=== PATIENT | female | born 1960 | race Asian ===

== ENCOUNTER 2016-10-27 06:04 | Day surgery (SDC) | payer OTHER ==
[~2016-10-27] VITALS: Ht 149.9 cm; Wt 48.5 kg
[~2016-10-27 06:04] MED LIST: ALBU8.5H IH; AZIT250T6 PO; BUDE10.2 IH; ETHA400 PO; FLUT16H NASAL; MONT10TA24 PO; PRED5 PO; PROME5L PO
[2016-10-27] MEDS ORDERED: SODIUM CHLORIDE 0.9% 1,000 ML IV ONE ×2 (06:13→06:15)
[2016-10-27] MEDS ORDERED: MIDAZOLAM HCL 5 MG/ML VIAL ONE (07:50)
[2016-10-27] MEDS ORDERED: FentaNYL CITRATE-PF 100 MCG/2 ML VIAL ONE (07:50)
[2016-10-27] MEDS ORDERED: MIDAZOLAM HCL 2 MG/2 ML VIAL ONE (07:51)
[2016-10-27] MEDS ORDERED: MethylPREDNISolone SOD SUCC 125 MG/2 ML VIAL IVP ONE (08:30)
[2016-10-27] MEDS ORDERED: MethylPREDNISolone SOD SUCC 125 MG/2 ML VIAL ONE (08:39)
[2016-10-27] MEDS ORDERED: LIDOCAINE HCL 2% 30 ML JELLY TP ONE (16:34)
[2016-10-27] MEDS ORDERED: LIDOCAINE HCL 4% 50 ML SOLUTION TP ONE (16:34)
[2016-10-27] MEDS ORDERED: BENZOCAINE 20% 50 MCG/SPRAY 57 GM TP ONE (16:34)
[2016-10-27] MEDS ORDERED: ALBUTEROL SULFATE 2.5 MG/0.5 ML NEB SOLUTION NEB ONE (16:34)
[2016-10-27] MEDS ORDERED: EPINEPHrine 1:1,000 [1 MG/ML] AMP IVP ONE (16:34)
[2016-10-27] MEDS ORDERED: OXYGEN THERAPY IH SCH (20:00)
== END 2016-10-27 09:55 | disposition home or self-care (01) ==
LOC: SURGERY 06:04
PROVIDERS: ATTEND Internal Medicine Critical Care Medicine
DX: J38.4 Edema of larynx (principal); B37.0 Candidal stomatitis; J45.909 Unspecified asthma, uncomplicated; Z98.42 Cataract extraction status, left eye; Z98.41 Cataract extraction status, right eye
CPT/HCPCS: 31623; 31624; 71010; 87015 ×2; 87070; 87101; 87147; 87205; 87220; J0171; J2250; J2930; J3010; J7030; 88108; 88305; 88312

== ENCOUNTER 2017-09-28 06:28 | Day surgery (SDC) | payer OTHER ==
[~2017-09-28] VITALS: Ht 149.9 cm; Wt 40.0 kg
[~2017-09-28 06:28] MED LIST changes: -ALBU8.5H IH; +ALBU8.5H8 IH; -AZIT250T6 PO; +AZIT250T9 PO
[2017-09-28] MEDS ORDERED: ALBUTEROL SULFATE 2.5 MG/0.5 ML NEB SOLUTION NEB ONE (06:29)
[2017-09-28] MEDS ORDERED: BENZOCAINE 20% 50 MCG/SPRAY 57 GM TP ONE (06:29)
[2017-09-28] MEDS ORDERED: LIDOCAINE HCL 4% 50 ML SOLUTION TP ONE (06:29)
[2017-09-28] MEDS ORDERED: LIDOCAINE HCL 2% 5 ML JELLY TP ONE (06:29)
[2017-09-28] MEDS ORDERED: SODIUM CHLORIDE 0.9% 1,000 ML IV ONE ×2 (06:30→06:43)
[2017-09-28] MEDS ORDERED: FentaNYL CITRATE-PF 100 MCG/2 ML VIAL ONE (07:54)
[2017-09-28] MEDS ORDERED: MIDAZOLAM HCL 2 MG/2 ML VIAL ONE (07:54)
[2017-09-28] MEDS ORDERED: MethylPREDNISolone SOD SUCC 125 MG/2 ML VIAL IVP ONE (09:15)
[2017-09-28] MEDS ORDERED: MethylPREDNISolone SOD SUCC 125 MG/2 ML VIAL ONE (09:31)
[2017-09-28] MEDS ORDERED: OXYGEN THERAPY IH SCH (20:00)
== END 2017-09-28 10:55 | disposition home or self-care (01) ==
LOC: SURGERY 06:28
PROVIDERS: ATTEND Internal Medicine Critical Care Medicine
DX: J38.4 Edema of larynx (principal); B37.0 Candidal stomatitis; M19.90 Unspecified osteoarthritis, unspecified site; Z98.890 Other specified postprocedural states; Z98.41 Cataract extraction status, right eye; Z98.42 Cataract extraction status, left eye; Z79.899 Other long term (current) drug therapy
CPT/HCPCS: 31623; 31624; 71045; 87015; 87070; 87077; 87147; 87186; 87205; 87220; 88108; 88312; J2250; J2930; J3010; J7030

== ENCOUNTER 2018-08-14 06:05 | Day surgery (SDC) | payer OTHER ==
[~2018-08-14] VITALS: Ht 149.9 cm; Wt 38.2 kg
[~2018-08-14 06:05] MED LIST changes: +PROM6.2522 PO; -PROME5L PO; +SODIUM CHLORIDE 0.9% 1,000 ML IV ONE
[2018-08-14] MEDS ORDERED: SODIUM CHLORIDE 0.9% 1,000 ML IV ONE (07:30)
[2018-08-14] MEDS ORDERED: MIDAZOLAM HCL 2 MG/2 ML VIAL ONE (07:52)
[2018-08-14] MEDS ORDERED: FentaNYL CITRATE-PF 100 MCG/2 ML VIAL ONE (07:52)
[2018-08-14] MEDS ORDERED: MethylPREDNISolone SOD SUCC 125 MG/2 ML VIAL IVP ONE (08:45)
[2018-08-14] MEDS ORDERED: MethylPREDNISolone SOD SUCC 125 MG/2 ML VIAL ONE (08:54)
[2018-08-14] MEDS ORDERED: LIDOCAINE 2% 30 ML JELLY TP ONE (12:00)
[2018-08-14] MEDS ORDERED: BENZOCAINE 20% 50 MCG/SPRAY 57 GM TP ONE (12:00)
[2018-08-14] MEDS ORDERED: ALBUTEROL SULFATE 2.5 MG/0.5 ML NEB SOLUTION NEB ONE (12:00)
[2018-08-14] MEDS ORDERED: LIDOCAINE 4% 50 ML SOLUTION TP ONE (12:00)
[2018-08-14] MEDS ORDERED: OXYGEN THERAPY IH SCH (20:00)
== END 2018-08-14 10:30 | disposition home or self-care (01) ==
LOC: SURGERY 06:05
PROVIDERS: ATTEND Internal Medicine Critical Care Medicine
DX: J38.4 Edema of larynx (principal); B37.0 Candidal stomatitis; J84.111 Idiopathic interstitial pneumonia, not otherwise specified; J98.09 Other diseases of bronchus, not elsewhere classified; J98.8 Other specified respiratory disorders; J45.998 Other asthma; M19.90 Unspecified osteoarthritis, unspecified site; Z86.59 Personal history of other mental and behavioral disorders; Z98.41 Cataract extraction status, right eye; Z98.42 Cataract extraction status, left eye; Z98.890 Other specified postprocedural states; Z79.899 Other long term (current) drug therapy
CPT/HCPCS: 31623; 31624; 71045; 87015; 87070; 87205; 87206; 87220; J2250; J2930; J3010; J7030

== ENCOUNTER 2020-09-15 06:37 | Day surgery (SDC) | payer OTHER ==
[2020-09-13 13:42] LABS: COVID AG,FIA SOURCE NASOPHARYNGEAL
[~2020-09-15] VITALS: Ht 149.9 cm; Wt 36.5 kg
[~2020-09-15 06:37] MED LIST changes: -AZIT250T9 PO; -MONT10TA24 PO; +MONT10TA97 PO; -PRED5 PO; -PROM6.2522 PO; +SODIUM CHLORIDE 0.9% 1,000 ML ONE
[2020-09-15] MEDS ORDERED: LIDOCAINE 4% 50 ML SOLUTION TP ONE (06:38)
[2020-09-15] MEDS ORDERED: ALBUTEROL SULFATE 2.5 MG/0.5 ML NEB SOLUTION NEB ONE (06:38)
[2020-09-15] MEDS ORDERED: LIDOCAINE 2% 30 ML JELLY TP ONE (06:38)
[2020-09-15] MEDS ORDERED: BENZOCAINE 20% 50 MCG/SPRAY 57 GM TP ONE (06:38)
[2020-09-15] MEDS ORDERED: MIDAZOLAM HCL 2 MG/2 ML VIAL ONE (08:11)
[2020-09-15] MEDS ORDERED: FentaNYL CITRATE-PF 100 MCG/2 ML VIAL ONE (08:11)
[2020-09-15] MEDS ORDERED: MethylPREDNISolone SOD SUCC 125 MG/2 ML VIAL IVP ONE (09:15)
[2020-09-15] MEDS ORDERED: MethylPREDNISolone SOD SUCC 125 MG/2 ML VIAL ONE (09:47)
[2020-09-15] MEDS ORDERED: OXYGEN THERAPY IH SCH (20:00)
== END 2020-09-15 10:55 | disposition home or self-care (01) ==
LOC: SURGERY 06:37
PROVIDERS: ATTEND Internal Medicine Critical Care Medicine
DX: R05 Cough (principal); R04.2 Hemoptysis; J34.89 Other specified disorders of nose and nasal sinuses; J98.8 Other specified respiratory disorders; J38.4 Edema of larynx; B37.0 Candidal stomatitis; J45.909 Unspecified asthma, uncomplicated; Z79.899 Other long term (current) drug therapy; Z20.828 Contact with and (suspected) exposure to other viral communicable diseases
CPT/HCPCS: 31623; 31624; 71045; 87015; 87070; 87101; 87206; 87220; 87426; 88108; 88312; C9803; J2250; J2930; J3010; J7030; J7613; Z7610

== ENCOUNTER 2020-12-28 13:07 | Emergency (ER) | payer OTHER ==
[~2020-12-28] VITALS: Ht 149.9 cm; Wt 36.4 kg
[~2020-12-28 13:07] MED LIST changes: +MONT10TA32 PO; -MONT10TA97 PO; -SODIUM CHLORIDE 0.9% 1,000 ML IV ONE; -SODIUM CHLORIDE 0.9% 1,000 ML ONE
[2020-12-28] MEDS ORDERED: FLUC100T PO (13:42)
[2020-12-28] MEDS ORDERED: PRED10 PO (13:42)
[2020-12-28] MEDS ORDERED: FAMO20 PO (13:42)
[2020-12-28] MEDS ORDERED: GuaiFENesin/CODEINE [SUGAR FREE] 200-20MG/10 ML SYRUP UDCUP PO ONE (14:30)
[2020-12-28 14:40] LABS: ANION GAP 9 mmol/L (8-16); CALCIUM, TOTAL 9.3 mg/dL (8.8-10.5); CARBON DIOXIDE 27 mmol/L (22-29); CHLORIDE 103 mmol/L (98-107); CREATININE 0.92 mg/dL (0.60-1.30); GLOMERULAR FILTR. RATE CALC > 60 mL/min (>60); GLUCOSE,RANDOM 146 mg/dL (70-110); POTASSIUM 4.2 mmol/L (3.5-5.1); SODIUM SERUM 139 mmol/L (136-145); UREA NITROGEN, BLOOD 11 mg/dL (7-18)
[2020-12-28 14:47] LABS: ALANINE AMINOTRANSFERASE 24 U/L (12-78); ALBUMIN 3.8 g/dL (3.4-5.0); ALKALINE PHOSPHATASE 79 U/L (46-116); ASPARTATE AMINOTRANSFERASE 18 U/L (15-37); BILIRUBIN,TOTAL 0.2 mg/dL (0.1-1.0); TOTAL PROTEIN, SERUM 8.2 g/dL (6.4-8.2)
[2020-12-28 15:02] LABS: BASOPHILS % (AUTO) 0.2 % (0.0-2.0); EOSINOPHILS % (AUTO) 0.1 % (1.0-6.0); HEMATOCRIT 28.3 % (36-46); LYMPHOCYTES # (AUTO) 0.7 K/uL (1.0-4.8); LYMPHOCYTES % (AUTO) 5.9 % (22.0-44.0); MEAN CORPUSCULAR HEMOGLOBIN 28.3 pg (26.0-34.0); MEAN CORPUSCULAR HGB CONC 31.7 G/dL (31.0-37.0); MEAN CORPUSCULAR VOLUME 89 fL (80-100); MONOCYTES # (AUTO) 0.2 K/uL (0.1-1.0); MONOCYTES % (AUTO) 1.9 % (2.0-9.0); NEUTROPHILS # (AUTO) 10.7 K/uL (1.8-7.7); PLATELET COUNT (AUTO) 335 K/uL (150-450); RED BLOOD CELL COUNT(AUTO) 3.17 MIL/uL (4.00-5.20); RED CELL DISTRIBUTION WIDTH 19.5 % (11.5-14.5)
[2020-12-28 15:10] LABS: NEUTROPHILS % (AUTO) 91.9 % (40.0-70.0)
[2020-12-28 16:00] VITALS: BP 138/77
== END 2020-12-28 16:27 | disposition home or self-care (01) ==
LOC: EMS 13:15
DX: J47.9 Bronchiectasis, uncomplicated (principal)
CPT/HCPCS: 93005; 99285; 36415-L1; 36415-TC; 71045-TC

== ENCOUNTER 2022-01-20 06:26 | Day surgery (SDC) | payer OTHER ==
[~2022-01-20] VITALS: Ht 160 cm; Wt 40.9 kg
[~2022-01-20 06:26] MED LIST changes: +FAMO20 PO; +MONT-40 PO; -MONT10TA32 PO; +PRED-729 PO; +VORI50TA PO
[2022-01-20] MEDS ORDERED: LIDOCAINE 2% 30 ML JELLY TP ONE (06:27)
[2022-01-20] MEDS ORDERED: ALBUTEROL SULFATE 2.5 MG/0.5 ML NEB SOLUTION NEB ONE (06:27)
[2022-01-20] MEDS ORDERED: BENZOCAINE 20% 50 MCG/SPRAY 57 GM TP ONE (06:27)
[2022-01-20] MEDS ORDERED: LIDOCAINE 4% 50 ML SOLUTION TP ONE (06:27)
[2022-01-20] MEDS ORDERED: SODIUM CHLORIDE 0.9% 1,000 ML IV ONE (06:30)
[2022-01-20 07:09] LABS: COVID AG,FIA SOURCE NASOPHARYNGEAL
[2022-01-20] MEDS ORDERED: SODIUM CHLORIDE 0.9% 1,000 ML ONE (07:11)
[2022-01-20] MEDS ORDERED: MIDAZOLAM HCL 5 MG/ML VIAL ONE (07:53)
[2022-01-20] MEDS ORDERED: FentaNYL CITRATE PF 100 MCG/2 ML VIAL ONE (07:53)
[2022-01-20] MEDS ORDERED: MethylPREDNISolone SOD SUCC 125 MG/2 ML VIAL IVP ONE (09:30)
[2022-01-20] MEDS ORDERED: PROMETH/PHENYLEPHRINE/CODEINE 5 ML ORAL.SYG PO ONE (09:45)
[2022-01-20] MEDS ORDERED: PROMETHAZINE HCL/CODEINE 6.25-10MG/5ML SYRUP UDCUP PO ONE (10:15)
== END 2022-01-20 11:30 | disposition home or self-care (01) ==
LOC: SURGERY 06:26
PROVIDERS: ATTEND Internal Medicine Critical Care Medicine
DX: J38.4 Edema of larynx (principal); B37.0 Candidal stomatitis; J05.10 Acute epiglottitis without obstruction; J45.909 Unspecified asthma, uncomplicated; Z79.899 Other long term (current) drug therapy; Z98.890 Other specified postprocedural states
CPT/HCPCS: 31623; 31624; 71045; 71250; 87015; 87070; 87101; 87206; 87220; 87426; 88112; 88184; 88185; 88305; 88312; C9803; J2250; J2930; J3010; J7030; J2370; J7613; Z7610

== ENCOUNTER 2022-11-13 06:52 | Day surgery (SDC) | payer OTHER ==
[~2022-11-13 06:52] MED LIST changes: -ALBU8.5H8 IH; +ALBU8HFA IH; -BUDE10.2 IH; +BUDE10.7 IH; -FLUT16H NASAL; +FLUT16SP NASAL; +ITRA100C3 PO; +MEGE400O5 PO; +POLY17PO52 PO; -VORI50TA PO
[2022-11-13] MEDS ORDERED: SODIUM CHLORIDE 0.9% 1,000 ML IV ONE (07:00)
[2022-11-13 07:19] LABS: COVID AG,FIA SOURCE NASAL SWAB
[2022-11-16] MEDS ORDERED: PRED-554 PO (09:57)
[2022-11-16] MEDS ORDERED: LEVO-72 PO (09:58)
== END 2022-11-13 07:30 | disposition home or self-care (01) ==
LOC: SURGERY 06:52
PROVIDERS: ATTEND Internal Medicine Critical Care Medicine
DX: R05.3 Chronic cough (principal); R91.1 Solitary pulmonary nodule; J98.09 Other diseases of bronchus, not elsewhere classified; Z20.822 Contact with and (suspected) exposure to COVID-19; J98.8 Other specified respiratory disorders
CPT/HCPCS: 87426; C9803

== ENCOUNTER 2022-12-11 07:12 | Day surgery (SDC) | payer OTHER ==
[~2022-12-11] VITALS: Ht 149.9 cm; Wt 40.9 kg
[~2022-12-11 07:12] MED LIST changes: -ETHA400 PO; -ITRA100C3 PO; -MEGE400O5 PO; +MEGE40TA5 PO; -PRED-729 PO; +SODIUM CHLORIDE 0.9% 1,000 ML IV ONE
[2022-12-11] MEDS ORDERED: LIDOCAINE 4% 50 ML SOLUTION TP ONE (07:13)
[2022-12-11] MEDS ORDERED: BENZOCAINE 20% 50 MCG/SPRAY 57 GM TP ONE (07:13)
[2022-12-11] MEDS ORDERED: LEVALBUTEROL HCL 1.25 MG/0.5 ML NEB SOLUTION NEB ONE (07:13)
[2022-12-11] MEDS ORDERED: LIDOCAINE 2% 11 ML JELLY TP ONE (07:13)
[2022-12-11] MEDS ORDERED: ALBUTEROL SULFATE 2.5 MG/0.5 ML NEB SOLUTION NEB ONE (07:13)
[2022-12-11] MEDS ORDERED: PRED-729 PO (07:53)
[2022-12-11 08:03] LABS: COVID AG,FIA SOURCE NASOPHARYNGEAL
[2022-12-11] MEDS ORDERED: SODIUM CHLORIDE 0.9% 1,000 ML ONE (08:04)
[2022-12-11] MEDS ORDERED: FentaNYL CITRATE PF 100 MCG/2 ML VIAL ONE (08:36)
[2022-12-11] MEDS ORDERED: MIDAZOLAM HCL 2 MG/2 ML VIAL ONE (08:36)
[2022-12-11] MEDS ORDERED: MethylPREDNISolone SOD SUCC 125 MG/2 ML VIAL IVP ONE (10:15)
[2022-12-11] MEDS ORDERED: MethylPREDNISolone SOD SUCC 125 MG/2 ML VIAL ONE (10:46)
== END 2022-12-11 12:25 | disposition home or self-care (01) ==
LOC: SURGERY 07:12
PROVIDERS: ATTEND Internal Medicine Critical Care Medicine
DX: R05.3 Chronic cough (principal); R91.1 Solitary pulmonary nodule; J98.8 Other specified respiratory disorders; J98.09 Other diseases of bronchus, not elsewhere classified
CPT/HCPCS: 31623; 88112; 87206; 87101; 87220; 87070; 87186; 31624; 94640; 71045; 87015; 87426; J3010; J2250; J2930; Q9967; J7030; C9803; J7613; Z7610

== ENCOUNTER 2023-01-12 12:22 | Emergency (ER) | payer OTHER ==
[~2023-01-12] VITALS: Ht 149.9 cm; Wt 54.5 kg
[~2023-01-12 12:22] MED LIST changes: +ALBU18HF12 IH; -ALBU8HFA IH; +PRED-729 PO; -SODIUM CHLORIDE 0.9% 1,000 ML IV ONE
[2023-01-12 15:07] LABS: APPEARANCE,URINE CLEAR (CLEAR); BILIRUBIN,URINE NEGATIVE (NEGATIVE); GLUCOSE, URINE (UA) NEGATIVE (NEGATIVE); KETONES,URINE NEGATIVE (NEGATIVE); LEUKOCYTE ESTERASE ,URINE NEGATIVE (NEGATIVE); NITRATE,URINE NEGATIVE (NEGATIVE); OCCULT BLOOD,URINE NEGATIVE (NEGATIVE); PH,URINE 6.5 (5.0-8.0); PROTEIN,URINE NEGATIVE (NEGATIVE); SPECIFIC GRAVITIY, URINE 1.005 (1.003-1.030); UROBILINOGEN,URINE <=1.0 mg/dL (<=1.0)
[2023-01-12 15:23] LABS: BASOPHILS % (AUTO) 0.2 % (0.0-2.0); EOSINOPHILS % (AUTO) 1.2 % (1.0-6.0); HEMATOCRIT 36.4 % (36-46); HEMOGLOBIN 11.4 g/dL (12.0-16.0); LYMPHOCYTES # (AUTO) 3.1 K/uL (1.0-4.8); LYMPHOCYTES % (AUTO) 21.3 % (22.0-44.0); MEAN CORPUSCULAR HEMOGLOBIN 24.3 pg (26.0-34.0); MEAN CORPUSCULAR HGB CONC 31.3 G/dL (31.0-37.0); MEAN CORPUSCULAR VOLUME 78 fL (80-100); MONOCYTES # (AUTO) 1.2 K/uL (0.1-1.0); MONOCYTES % (AUTO) 8.1 % (2.0-9.0); NEUTROPHILS # (AUTO) 10.1 K/uL (1.8-7.7); NEUTROPHILS % (AUTO) 69.2 % (40.0-70.0); PLATELET COUNT (AUTO) 347 K/uL (150-450); RED BLOOD CELL COUNT(AUTO) 4.68 MIL/uL (4.00-5.20); RED CELL DISTRIBUTION WIDTH 18.4 % (11.5-14.5)
[2023-01-12 15:35] LABS: ANION GAP 9 mmol/L (8-16); CALCIUM, TOTAL 9.5 mg/dL (8.8-10.5); CARBON DIOXIDE 26 mmol/L (22-29); CHLORIDE 99 mmol/L (98-107); CREATININE 0.77 mg/dL (0.60-1.30); GLOMERULAR FILTR. RATE CALC > 60 mL/min (>60); GLUCOSE,RANDOM 89 mg/dL (70-110); POTASSIUM 3.9 mmol/L (3.5-5.1); SODIUM SERUM 134 mmol/L (136-145); UREA NITROGEN, BLOOD 16 mg/dL (7-18)
[2023-01-12 15:41] LABS: ALANINE AMINOTRANSFERASE 37 U/L (12-78); ALBUMIN 3.9 g/dL (3.4-5.0); ALKALINE PHOSPHATASE 84 U/L (46-116); ASPARTATE AMINOTRANSFERASE 25 U/L (15-37); BILIRUBIN,TOTAL 0.4 mg/dL (0.1-1.0)
[2023-01-12 16:00] LABS: B-TYPE NATRIURETIC PEPTIDE 31 pg/mL (0-100)
[2023-01-12] MEDS ORDERED: ACETAMINOPHEN 325 MG TABLET PO ONE (16:30)
[2023-01-12] MEDS ORDERED: AMOXICILLIN TRIHYDRATE 250 MG CAPSULE PO ONE ×2 (16:45)
[2023-01-12] MEDS ORDERED: AMOX500C2 PO (21:34)
[2023-01-12 21:58] VITALS: BP 136/80
== END 2023-01-12 22:01 | disposition home or self-care (01) ==
LOC: EMS 12:22
DX: J32.9 Chronic sinusitis, unspecified (principal); R42 Dizziness and giddiness; J45.909 Unspecified asthma, uncomplicated
CPT/HCPCS: 70450; 71045; 80053; 81003; 83880; 84484; 85025; 93005; 99285; 36415-L1; 36415-TC

== ENCOUNTER 2023-02-21 07:20 | Inpatient (IN) | payer OTHER ==
[~2023-02-21] VITALS: Ht 149.9 cm; Wt 40.9 kg
[~2023-02-21 07:20] MED LIST changes: +AMOX500C2 PO; -BUDE10.7 IH; -MEGE40TA5 PO
[2023-02-21] MEDS ORDERED: BUDE10.7 IH (07:36)
[2023-02-21] MEDS ORDERED: MethylPREDNISolone SOD SUCC 125 MG/2 ML VIAL IVP ONE (08:15)
[2023-02-21] MEDS ORDERED: MORPHINE SULFATE 4 MG/ML SYRINGE IVP ONE (08:15)
[2023-02-21] MEDS ORDERED: ALBUTEROL SULFATE 2.5 MG/0.5 ML NEB SOLUTION NEB ONE (08:15)
[2023-02-21] MEDS ORDERED: ONDANSETRON HCL 4 MG/2 ML VIAL IVP ONE (08:15)
[2023-02-21] MEDS ORDERED: CefTRIAXone 1 GM/DEXTROSE 50 ML IV ONE (08:15)
[2023-02-21] MEDS ORDERED: ACETAMINOPHEN 325 MG TABLET PO ONE (08:15)
[2023-02-21] MEDS ORDERED: ASPIRIN 325 MG TABLET PO ONE (08:15)
[2023-02-21] MEDS ORDERED: IPRATROPIUM BROMIDE 0.5 MG/2.5 ML NEB SOLUTION NEB ONE (08:15)
[2023-02-21] MEDS ORDERED: AZITHROMYCIN 500 MG/NS 250 ML IV ONE (08:15)
[2023-02-21 08:51] LABS: BASOPHILS % (AUTO) 0.2 % (0.0-2.0); EOSINOPHILS % (AUTO) 1.7 % (1.0-6.0); HEMATOCRIT 33.3 % (36-46); HEMOGLOBIN 10.7 g/dL (12.0-16.0); LYMPHOCYTES # (AUTO) 1.7 K/uL (1.0-4.8); LYMPHOCYTES % (AUTO) 12.1 % (22.0-44.0); MEAN CORPUSCULAR HEMOGLOBIN 25.1 pg (26.0-34.0); MEAN CORPUSCULAR HGB CONC 32.2 G/dL (31.0-37.0); MEAN CORPUSCULAR VOLUME 78 fL (80-100); MONOCYTES # (AUTO) 1.3 K/uL (0.1-1.0); MONOCYTES % (AUTO) 9.2 % (2.0-9.0); NEUTROPHILS % (AUTO) 76.8 % (40.0-70.0); PLATELET COUNT (AUTO) 389 K/uL (150-450); RED BLOOD CELL COUNT(AUTO) 4.28 MIL/uL (4.00-5.20); RED CELL DISTRIBUTION WIDTH 17.3 % (11.5-14.5)
[2023-02-21 09:02] LABS: ANION GAP 12 mmol/L (8-16); CARBON DIOXIDE 24 mmol/L (22-29); CHLORIDE 97 mmol/L (98-107); CREATININE 0.79 mg/dL (0.60-1.30); GLOMERULAR FILTR. RATE CALC > 60 mL/min (>60); GLUCOSE,RANDOM 91 mg/dL (70-110); POTASSIUM 3.3 mmol/L (3.5-5.1); SODIUM SERUM 133 mmol/L (136-145)
[2023-02-21 09:06] LABS: B-TYPE NATRIURETIC PEPTIDE 20 pg/mL (0-100)
[2023-02-21 09:11] LABS: LACTIC ACID 1.3 mmol/L (0.4-2.0)
[2023-02-21 09:17] LABS: ALANINE AMINOTRANSFERASE 42 U/L (12-78); ALBUMIN 3.2 g/dL (3.4-5.0); ALKALINE PHOSPHATASE 94 U/L (46-116); ASPARTATE AMINOTRANSFERASE 19 U/L (15-37); BILIRUBIN,TOTAL 0.3 mg/dL (0.1-1.0); LIPASE 48 U/L (73-393); TOTAL PROTEIN, SERUM 7.4 g/dL (6.4-8.2)
[2023-02-21 09:18] LABS: COVID AG,FIA SOURCE NASOPHARYNGEAL
[2023-02-21 09:50] LABS: INFLUENZA TYPE A NEGATIVE FOR TYPE A (NEGATIVE); INFLUENZA TYPE B NEGATIVE FOR TYPE B (NEGATIVE)
[2023-02-21 11:28] LABS: APPEARANCE,URINE CLEAR (CLEAR); BILIRUBIN,URINE NEGATIVE (NEGATIVE); GLUCOSE, URINE (UA) NEGATIVE (NEGATIVE); KETONES,URINE NEGATIVE (NEGATIVE); LEUKOCYTE ESTERASE ,URINE NEGATIVE (NEGATIVE); NITRATE,URINE NEGATIVE (NEGATIVE); OCCULT BLOOD,URINE NEGATIVE (NEGATIVE); PH,URINE 6.5 (5.0-8.0); PROTEIN,URINE NEGATIVE (NEGATIVE); UROBILINOGEN,URINE <=1.0 mg/dL (<=1.0)
[2023-02-21 11:41] LABS: BACTERIA,URINE None Seen /HPF (None Seen); RBC,URINE None Seen /HPF (0-2); SQUAMOUS EPITHELIAL CELL,UR Rare /LPF (None Seen); WBC,URINE None Seen /HPF (0-5)
[2023-02-21] MEDS ORDERED: BISACODYL 10 MG RECTAL RECTAL SUPPOSITORY PR PRN (14:30)
[2023-02-21] MEDS ORDERED: ACETAMINOPHEN 325 MG TABLET PO PRN (14:30)
[2023-02-21] MEDS ORDERED: MORPHINE SULFATE 2 MG/ML SYRINGE IVP PRN (14:30)
[2023-02-21] MEDS ORDERED: ALBUTEROL SULFATE 2.5 MG/0.5 ML NEB SOLUTION NEB PRN (14:30)
[2023-02-21] MEDS ORDERED: ZOLPIDEM TARTRATE 5 MG TABLET PO PRN (14:30)
[2023-02-21] MEDS ORDERED: MAGNESIUM HYDROXIDE SUSPENSION 30 ML UDCUP PO PRN (14:30)
[2023-02-21] MEDS ORDERED: ONDANSETRON HCL 4 MG/2 ML VIAL IVP PRN (14:30)
[2023-02-21] MEDS ORDERED: IPRATROPIUM BROMIDE 0.5 MG/2.5 ML NEB SOLUTION NEB PRN (14:30)
[2023-02-21 16:34] VITALS: BP 152/87
[2023-02-21] MEDS: BENZONATATE 100 MG CAPSULE PO SCH ×2 (17:13→20:09)
[2023-02-21] MEDS: HEPARIN SODIUM,PORCINE 5,000 UNITS/ML VIAL SQ SCH (17:14)
[2023-02-21 17:26] VITALS: BP 149/88
[2023-02-21] MEDS: MethylPREDNISolone SOD SUCC 125 MG/2 ML VIAL IVP SCH (17:48)
[2023-02-21] MEDS ORDERED: POTASSIUM CHLORIDE 20 MEQ ER TABLET PO PRN (18:45)
[2023-02-21] MEDS ORDERED: POTASSIUM CHLORIDE 20 MEQ ER TABLET PO ONE (18:45)
[2023-02-21] MEDS ORDERED: POTASSIUM CHL 10 MEQ/WATER 50 ML IV PRN (18:45)
[2023-02-21] MEDS: HYDROCODONE/ACETAMINOPHEN 5-325 MG TABLET PO PRN (20:09)
[2023-02-21] MEDS: DOCUSATE SODIUM 100 MG CAPSULE PO SCH (20:09)
[2023-02-21] MEDS: GuaiFENesin SR 600 MG ER TABLET PO SCH (20:09)
[2023-02-21 20:15] VITALS: BP 156/84
[2023-02-21] MEDS: BUDESONIDE 0.5 MG/2 ML NEB SOLUTION NEB SCH (20:40)
[2023-02-21] MEDS: IPRATROPIUM BROMIDE 0.5 MG/2.5 ML NEB SOLUTION NEB SCH (20:40)
[2023-02-21] MEDS: ALBUTEROL SULFATE 2.5 MG/0.5 ML NEB SOLUTION NEB SCH (20:40)
[2023-02-22] MEDS: MethylPREDNISolone SOD SUCC 125 MG/2 ML VIAL IVP SCH ×4 (00:14→23:16)
[2023-02-22] MEDS: HEPARIN SODIUM,PORCINE 5,000 UNITS/ML VIAL SQ SCH ×4 (00:14→23:28)
[2023-02-22] MEDS: ALBUTEROL SULFATE 2.5 MG/0.5 ML NEB SOLUTION NEB SCH ×4 (02:44→20:00)
[2023-02-22] MEDS: IPRATROPIUM BROMIDE 0.5 MG/2.5 ML NEB SOLUTION NEB SCH ×4 (02:44→20:00)
[2023-02-22 04:15] VITALS: BP 144/73
[2023-02-22 06:47] LABS: BASOPHILS % (AUTO) 0.1 % (0.0-2.0); EOSINOPHILS % (AUTO) 0 % (1.0-6.0); HEMATOCRIT 32.7 % (36-46); HEMOGLOBIN 10.6 g/dL (12.0-16.0); LYMPHOCYTES # (AUTO) 0.7 K/uL (1.0-4.8); LYMPHOCYTES % (AUTO) 4.9 % (22.0-44.0); MEAN CORPUSCULAR HGB CONC 32.4 G/dL (31.0-37.0); MEAN CORPUSCULAR VOLUME 77 fL (80-100); MONOCYTES # (AUTO) 0.1 K/uL (0.1-1.0); MONOCYTES % (AUTO) 0.6 % (2.0-9.0); NEUTROPHILS # (AUTO) 13.7 K/uL (1.8-7.7); NEUTROPHILS % (AUTO) 94.4 % (40.0-70.0); PLATELET COUNT (AUTO) 370 K/uL (150-450); RED BLOOD CELL COUNT(AUTO) 4.25 MIL/uL (4.00-5.20); RED CELL DISTRIBUTION WIDTH 17.1 % (11.5-14.5)
[2023-02-22 07:20] LABS: CREATININE 0.97 mg/dL (0.60-1.30); POTASSIUM 4.3 mmol/L (3.5-5.1)
[2023-02-22 08:00] VITALS: BP 150/94
[2023-02-22 08:02] VITALS: BP 158/90
[2023-02-22] MEDS: GuaiFENesin SR 600 MG ER TABLET PO SCH ×2 (08:20→20:38)
[2023-02-22] MEDS: DOCUSATE SODIUM 100 MG CAPSULE PO SCH ×2 (08:21→20:38)
[2023-02-22] MEDS: PANTOPRAZOLE SODIUM 40 MG DR TABLET PO SCH (08:21)
[2023-02-22] MEDS: BENZONATATE 100 MG CAPSULE PO SCH ×3 (08:26→20:38)
[2023-02-22] MEDS ORDERED: SODIUM CHLORIDE 0.9% 250 ML IV ONE (08:55)
[2023-02-22] MEDS: BUDESONIDE 0.5 MG/2 ML NEB SOLUTION NEB SCH ×2 (08:57→20:50)
[2023-02-22] MEDS: HYDROCODONE/ACETAMINOPHEN 5-325 MG TABLET PO PRN ×3 (10:14→23:39)
[2023-02-22] MEDS: CefTRIAXone 1 GM/DEXTROSE 50 ML IV SCH (11:11)
[2023-02-22] MEDS: MONTELUKAST SODIUM 10 MG TABLET PO SCH (11:40)
[2023-02-22] MEDS: AZITHROMYCIN 500 MG/NS 250 ML IV SCH (11:44)
[2023-02-22 16:08] VITALS: BP 170/94
[2023-02-22 20:35] VITALS: BP 160/98
[2023-02-22 23:13] VITALS: BP 151/91
[2023-02-23] MEDS: IPRATROPIUM BROMIDE 0.5 MG/2.5 ML NEB SOLUTION NEB SCH ×4 (02:49→20:11)
[2023-02-23] MEDS: ALBUTEROL SULFATE 2.5 MG/0.5 ML NEB SOLUTION NEB SCH ×4 (02:50→20:11)
[2023-02-23 05:04] VITALS: BP 142/86
[2023-02-23] MEDS: BUDESONIDE 0.5 MG/2 ML NEB SOLUTION NEB SCH ×2 (06:58→20:12)
[2023-02-23 07:05] LABS: EOSINOPHILS % (AUTO) 0 % (1.0-6.0); HEMATOCRIT 32.6 % (36-46); HEMOGLOBIN 10.5 g/dL (12.0-16.0); LYMPHOCYTES # (AUTO) 0.7 K/uL (1.0-4.8); MEAN CORPUSCULAR HEMOGLOBIN 24.7 pg (26.0-34.0); MEAN CORPUSCULAR HGB CONC 32.3 G/dL (31.0-37.0); MEAN CORPUSCULAR VOLUME 77 fL (80-100); MONOCYTES # (AUTO) 0.3 K/uL (0.1-1.0); MONOCYTES % (AUTO) 1.4 % (2.0-9.0); NEUTROPHILS # (AUTO) 21.4 K/uL (1.8-7.7); PLATELET COUNT (AUTO) 374 K/uL (150-450); RED BLOOD CELL COUNT(AUTO) 4.25 MIL/uL (4.00-5.20); RED CELL DISTRIBUTION WIDTH 16.8 % (11.5-14.5)
[2023-02-23 07:08] LABS: NEUTROPHILS % (AUTO) 95.6 % (40.0-70.0)
[2023-02-23 07:12] LABS: CALCIUM, TOTAL 9.1 mg/dL (8.8-10.5); CREATININE 1.15 mg/dL (0.60-1.30)
[2023-02-23 07:59] VITALS: BP 141/82
[2023-02-23] MEDS: BENZONATATE 100 MG CAPSULE PO SCH ×3 (08:06→20:07)
[2023-02-23] MEDS: PANTOPRAZOLE SODIUM 40 MG DR TABLET PO SCH (08:06)
[2023-02-23] MEDS: HEPARIN SODIUM,PORCINE 5,000 UNITS/ML VIAL SQ SCH ×3 (08:06→23:48)
[2023-02-23] MEDS: MONTELUKAST SODIUM 10 MG TABLET PO SCH (08:06)
[2023-02-23] MEDS: DOCUSATE SODIUM 100 MG CAPSULE PO SCH ×2 (08:06→20:06)
[2023-02-23] MEDS: GuaiFENesin SR 600 MG ER TABLET PO SCH ×2 (08:06→20:06)
[2023-02-23] MEDS: MethylPREDNISolone SOD SUCC 125 MG/2 ML VIAL IVP SCH (08:07)
[2023-02-23] MEDS: CefTRIAXone 1 GM/DEXTROSE 50 ML IV SCH (11:07)
[2023-02-23] MEDS: AZITHROMYCIN 500 MG/NS 250 ML IV SCH (11:55)
[2023-02-23] MEDS: HYDROCODONE/ACETAMINOPHEN 5-325 MG TABLET PO PRN ×2 (14:21→20:01)
[2023-02-23 15:01] VITALS: BP 147/93
[2023-02-23 15:03] LABS: ABG BASE EXCESS -0.8 mmol/L (-2.0-3.0); ABG CARBOXYHEMOGLOBIN 0.3 % (0.0-1.5); ABG HCO3 24.3 mmol/L (22.0-26.0); ABG METHEMOGLOBIN 0.3 % (0.0-1.5); ABG OXYGEN CONTENT 13.8 mL/dL (15.0-23.0); ABG OXYHEMOGLOBIN 95.4 % (94.0-100.0); ABG PCO2 30 mmHg (35-45); ABG PH 7.497 (7.35-7.450); ABG TOTAL HEMOGLOBIN 10.2 G/dL (12.0-18.0); PO2, ARTERIAL BG 78.1 mmHg (79.0-87.0); SOURCE, BLOOD GAS ARTERIAL; TEMPERATURE, FAHRENHEIT, BG 98.9 FAHREN (96.0-98.6)
[2023-02-23 15:04] LABS: SITE, BLOOD GAS LFT BRACHIAL
[2023-02-23 19:47] VITALS: BP 149/88
[2023-02-24] MEDS: IPRATROPIUM BROMIDE 0.5 MG/2.5 ML NEB SOLUTION NEB SCH ×3 (02:29→16:13)
[2023-02-24] MEDS: ALBUTEROL SULFATE 2.5 MG/0.5 ML NEB SOLUTION NEB SCH ×3 (02:29→16:13)
[2023-02-24 04:41] VITALS: BP 128/85
[2023-02-24] MEDS: HYDROCODONE/ACETAMINOPHEN 5-325 MG TABLET PO PRN ×2 (05:50→12:05)
[2023-02-24 07:33] LABS: BASOPHILS % (AUTO) 0.1 % (0.0-2.0); EOSINOPHILS % (AUTO) 0 % (1.0-6.0); HEMATOCRIT 28.5 % (36-46); HEMOGLOBIN 9.3 g/dL (12.0-16.0); LYMPHOCYTES # (AUTO) 1.5 K/uL (1.0-4.8); LYMPHOCYTES % (AUTO) 8.3 % (22.0-44.0); MEAN CORPUSCULAR HEMOGLOBIN 24.9 pg (26.0-34.0); MEAN CORPUSCULAR HGB CONC 32.6 G/dL (31.0-37.0); MEAN CORPUSCULAR VOLUME 76 fL (80-100); MONOCYTES # (AUTO) 1.2 K/uL (0.1-1.0); MONOCYTES % (AUTO) 6.9 % (2.0-9.0); NEUTROPHILS # (AUTO) 15.3 K/uL (1.8-7.7); NEUTROPHILS % (AUTO) 84.7 % (40.0-70.0); PLATELET COUNT (AUTO) 302 K/uL (150-450); RED BLOOD CELL COUNT(AUTO) 3.74 MIL/uL (4.00-5.20); RED CELL DISTRIBUTION WIDTH 16.5 % (11.5-14.5)
[2023-02-24 07:45] VITALS: BP 159/94
[2023-02-24 08:14] LABS: ANION GAP 6 mmol/L (8-16); CALCIUM, TOTAL 8.5 mg/dL (8.8-10.5); CARBON DIOXIDE 26 mmol/L (22-29); CHLORIDE 100 mmol/L (98-107); CREATININE 0.85 mg/dL (0.60-1.30); GLOMERULAR FILTR. RATE CALC > 60 mL/min (>60); GLUCOSE,RANDOM 104 mg/dL (70-110); POTASSIUM 3.7 mmol/L (3.5-5.1); SODIUM SERUM 132 mmol/L (136-145)
[2023-02-24] MEDS ORDERED: PRED-554 PO (08:21)
[2023-02-24] MEDS ORDERED: LEVO-72 PO (08:22)
[2023-02-24] MEDS: HEPARIN SODIUM,PORCINE 5,000 UNITS/ML VIAL SQ SCH ×2 (08:36→15:44)
[2023-02-24] MEDS: PANTOPRAZOLE SODIUM 40 MG DR TABLET PO SCH (08:36)
[2023-02-24] MEDS: MONTELUKAST SODIUM 10 MG TABLET PO SCH (08:36)
[2023-02-24] MEDS: GuaiFENesin SR 600 MG ER TABLET PO SCH (08:36)
[2023-02-24] MEDS: DOCUSATE SODIUM 100 MG CAPSULE PO SCH (08:36)
[2023-02-24] MEDS: BENZONATATE 100 MG CAPSULE PO SCH ×2 (08:36→15:44)
[2023-02-24] MEDS ORDERED: PredniSONE 20 MG TABLET PO SCH (09:00)
[2023-02-24] MEDS: BUDESONIDE 0.5 MG/2 ML NEB SOLUTION NEB SCH (09:33)
[2023-02-24] MEDS: CefTRIAXone 1 GM/DEXTROSE 50 ML IV SCH (11:28)
[2023-02-24] MEDS: AZITHROMYCIN 500 MG/NS 250 ML IV SCH (13:48)
[2023-02-24] MEDS ORDERED: PNEUMOCOCCAL VACCINE POLYVALENT 0.5 ML VIAL [PPSV23] IM. ONE (14:45)
[2023-02-24 15:48] VITALS: BP 153/91
== END 2023-02-24 16:05 | disposition home or self-care (01) | DRG 139 ==
LOC: EMS 07:21 → 6S 14:53
PROVIDERS: ADMIT Internal Medicine; ATTEND Internal Medicine
PROC: 3E0234Z Introduction of Serum, Toxoid and Vaccine into Muscle, Percutaneous Approach (ICD-10-PCS; principal; 2023-02-21)
DX: J18.9 Pneumonia, unspecified organism (principal); J96.01 Acute respiratory failure with hypoxia; R65.11 Systemic inflammatory response syndrome (SIRS) of non-infectious origin with acute organ dysfunction; E43 Unspecified severe protein-calorie malnutrition; J45.901 Unspecified asthma with (acute) exacerbation; E87.1 Hypo-osmolality and hyponatremia; Z20.822 Contact with and (suspected) exposure to COVID-19; K21.9 Gastro-esophageal reflux disease without esophagitis; E87.6 Hypokalemia; D64.9 Anemia, unspecified; Z79.899 Other long term (current) drug therapy; Z68.1 Body mass index [BMI] 19.9 or less, adult
CPT/HCPCS: 36600; 71045; 80048; 80053; 81001; 82805; 83605; 83690; 83880; 84132; 84484; 85025; 87040; 87804; 90732; 94640; 97116; 97162; 99285; G0378; J0456; J0696; J1644; J2270; J2405; J2930; J7050; 36415-L1; 36415-TC; J7613

== ENCOUNTER 2024-03-10 06:49 | Day surgery (SDC) | payer OTHER ==
[~2024-03-10 06:49] MED LIST changes: -AMOX500C2 PO; +BUDE10.7 IH; -FLUT16SP NASAL; +LEVO-72 PO; -MONT-40 PO; -POLY17PO52 PO; +PRED-554 PO; -PRED-729 PO
[2024-03-10] MEDS ORDERED: LIDOCAINE 2% 11 ML JELLY TP ONE (06:50)
[2024-03-10] MEDS ORDERED: ALBUTEROL SULFATE 2.5 MG/0.5 ML NEB SOLUTION NEB ONE (06:50)
[2024-03-10] MEDS ORDERED: BENZOCAINE 20% 50 MCG/SPRAY 57 GM TP ONE (06:50)
[2024-03-10] MEDS ORDERED: LIDOCAINE 4% 50 ML SOLUTION TP ONE (06:50)
[2024-03-10] MEDS ORDERED: SODIUM CHLORIDE 0.9% 0 ML ONE (07:03)
[2024-03-10] MEDS ORDERED: MIDAZOLAM HCL 2 MG/2 ML VIAL ONE (07:38)
[2024-03-10] MEDS ORDERED: FentaNYL CITRATE PF 100 MCG/2 ML VIAL ONE (07:39)
[2024-03-10] MEDS: SODIUM CHLORIDE 0.9% 1,000 ML IV ONE (08:30)
[2024-03-10 09:10] VITALS: PULSE 73; RESP 18; O2SAT 98
[2024-03-10] MEDS ORDERED: MethylPREDNISolone SOD SUCC 125 MG/2 ML VIAL ONE (09:32)
[2024-03-10] MEDS: MethylPREDNISolone SOD SUCC 125 MG/2 ML VIAL IVP ONE (09:43)
== END 2024-03-10 11:15 | disposition home or self-care (01) ==
LOC: SURGERY 06:49
PROVIDERS: ATTEND Internal Medicine Critical Care Medicine
DX: R05.3 Chronic cough (principal); J38.4 Edema of larynx; B37.0 Candidal stomatitis; J98.09 Other diseases of bronchus, not elsewhere classified; J84.10 Pulmonary fibrosis, unspecified; J98.8 Other specified respiratory disorders; Z85.21 Personal history of malignant neoplasm of larynx; Z11.9 Encounter for screening for infectious and parasitic diseases, unspecified; R06.00 Dyspnea, unspecified; I10 Essential (primary) hypertension; J45.909 Unspecified asthma, uncomplicated; Z98.890 Other specified postprocedural states; Z79.899 Other long term (current) drug therapy
CPT/HCPCS: 87206; 87101; 87220; 87070; 88108; 31623; 31624; 71045; 87015; J3010; J2250; J2919; Q9967; 87186; J7030; J7613; Z7610

== ENCOUNTER 2025-01-21 06:27 | Day surgery (SDC) | payer OTHER ==
[~2025-01-21] VITALS: Ht 149.9 cm; Wt 45.5 kg
[2025-01-21] MEDS ORDERED: ALBUTEROL SULFATE 2.5 MG/0.5 ML NEB SOLUTION NEB ONE (06:28)
[2025-01-21] MEDS ORDERED: BENZOCAINE 20% 50 MCG/SPRAY 57 GM TP ONE (06:28)
[2025-01-21] MEDS ORDERED: LIDOCAINE 2% 11 ML JELLY TP ONE (06:28)
[2025-01-21] MEDS ORDERED: LIDOCAINE 4% 50 ML SOLUTION TP ONE (06:28)
[2025-01-21] MEDS ORDERED: SODIUM CHLORIDE 0.9% 1,000 ML ONE (07:03)
[2025-01-21] MEDS: SODIUM CHLORIDE 0.9% 1,000 ML IV ONE (08:10)
[2025-01-21] MEDS ORDERED: FLUMAZENIL 0.1 MG/ML 5 ML VIAL IVP ONE (08:18)
[2025-01-21] MEDS ORDERED: NALOXONE HCL 0.4 MG/ML VIAL ONE (08:19)
[2025-01-21] MEDS ORDERED: DiphenhydrAMINE HCL 50 MG/ML VIAL ONE (08:19)
[2025-01-21] MEDS ORDERED: ATROPINE SULFATE 0.1 MG/ML 10 ML SYRINGE IVP ONE (08:19)
[2025-01-21] MEDS ORDERED: SODIUM TETRADECYL SULFATE 3% 60 MG/2 ML VIAL IVP ONE (08:19)
[2025-01-21] MEDS ORDERED: EPINEPHrine 1:10,000 [1 MG/10 ML] SYRINGE ONE (08:19)
[2025-01-21] MEDS ORDERED: FentaNYL CITRATE PF 100 MCG/2 ML VIAL ONE (08:20)
[2025-01-21] MEDS ORDERED: MIDAZOLAM HCL 2 MG/2 ML VIAL ONE (08:20)
[2025-01-21 08:55] VITALS: PULSE 85; RESP 20; O2SAT 98
[2025-01-21] MEDS ORDERED: MethylPREDNISolone SOD SUCC 125 MG/2 ML VIAL ONE (09:23)
[2025-01-21] MEDS: MethylPREDNISolone SOD SUCC 125 MG/2 ML VIAL IVP ONE (09:42)
== END 2025-01-21 12:55 | disposition home or self-care (01) ==
LOC: SURGERY 06:27
PROVIDERS: ATTEND Internal Medicine Critical Care Medicine
DX: R05.3 Chronic cough (principal); J38.4 Edema of larynx; B37.0 Candidal stomatitis; I10 Essential (primary) hypertension; J47.9 Bronchiectasis, uncomplicated; Z87.01 Personal history of pneumonia (recurrent)
CPT/HCPCS: 31623; 87206; 87101; 87220; 87070; 88108; 31624; 71045; 87015; J3010; J2250; J2919; J7030; J3490; J0171; J0461; J1200; J2310; J7613; Z7610